=== PATIENT | female | born 1935 | race Caucasian/White ===

== ENCOUNTER 2022-12-22 19:16 | Inpatient (IN) ==
[2022-12-22] MEDS ORDERED: DILTIAZEM 50 MG/10 ML VIAL IV STA (20:15)
[2022-12-22] MEDS ORDERED: ONDANSETRON 4 MG/2 ML VIAL IV STA (20:15)
[2022-12-22 20:32] LABS: INR 1.8; PT Patient Result 18.9 SECS (10.1-12.1)
[2022-12-22] MEDS ORDERED: METOCLOPRAMIDE 10 MG/2 ML VIAL IV STA (21:20)
[2022-12-22 22:15] LABS: Basophils # 0.1 10*3/uL (0.0-0.2); Basophils % 1.2 % (0.0-0.8); Eosinophils # 0.3 10*3/uL (0.0-0.87); Eosinophils % 2.7 % (0.00-10.9); Hematocrit 47.7 VOL% (35.7-47.0); Hemoglobin 15.6 GM/DL (12.0-16.0); Immature Granulocytes % 0.5 %; Immature Granulocytes Absolute 0.05 #; Lymphocytes # 2.3 10*3/uL (1.4-4.0); Lymphocytes % 21.4 % (21.3-54.2); Mean Corpuscular HGB Conc 32.7 GM/DL (32-36); Mean Corpuscular Volume 97.1 FL (87-102); Monocytes # 1.2 10*3/uL (0.11-0.8); Monocytes % 11.1 % (1.7-12.7); Neutrophils % 63.1 % (38.7-73.9); Platelet Count 178 T/CUMM (130-400); Red Blood Count 4.91 MC/CUMM (3.8-5.5); Red Cell Distribution Width 14.6 % (9.3-17.3); White Blood Count 10.65 T/CUMM (4-12)
[2022-12-22 22:22] LABS: Hyaline Casts,Urine 30 /LPF (0-3); Mucus,Urine Occasional /LPF (Occasional); RBC,Urine 6 /HPF (0-4); Squamous Epithelial Cell,Urine Occasional /HPF (0-10)
[2022-12-22 22:23] LABS: Urine Appearance Clear (Clear); Urine Color Yellow (Yellow)
[2022-12-22 22:24] LABS: Bilirubin,Urine Negative (Negative); Blood, Urine Negative (Negative); Glucose,Urine (UA) Negative (Negative); Ketones,Urine Negative (Negative); Nitrite,Urine Negative (Negative); Protein,Urine Negative (Negative); Urine Specific Gravity 1.015 (1.001-1.035); Urine Urobilinogen 0.2 eU/dL (<2.0)
[2022-12-22 22:29] LABS: Albumin 3.4 G/DL (3.4-5.0); Bilirubin,Total 0.9 MG/DL (0.20-1.00); Calcium 9.2 MG/DL (8.5-10.1); Potassium 5.5 MMOL/L (3.5-5.1); Thyroid Stimulating Hormone 1.45 uIU/ml (0.358-3.74); Total Protein 6.1 G/DL (6.4-8.2)
[2022-12-22] MEDS ORDERED: SODIUM CHLORIDE 0.9% 500 ML IV STA (22:51)
[2022-12-22] MEDS ORDERED: FUROSEMIDE 40 MG/4 ML VIAL IV STA (23:36)
[2022-12-22] MEDS ORDERED: hydrALAZINE 20 MG/1 ML VIAL IV PRN (23:46)
[2022-12-22] MEDS ORDERED: ZALEPLON 5 MG CAPSULE PO PRN (23:46)
[2022-12-22] MEDS ORDERED: diphenhydrAMINE CAP 25 MG CAPSULE PO PRN (23:46)
[2022-12-22] MEDS ORDERED: guaiFENesin/DM ER 600-30 MG TABLET PO PRN (23:46)
[2022-12-22] MEDS ORDERED: ALBUTEROL/IPRATROPIUM 3 ML NEB RESP TX PRN (23:46)
[2022-12-22] MEDS ORDERED: ACETAMINOPHEN 325 MG TABLET PO PRN (23:46)
[2022-12-22] MEDS ORDERED: NICOTINE 21 MG/24 HR PATCH TRANSDERM PRN (23:46)
[2022-12-22] MEDS ORDERED: ONDANSETRON 4 MG/2 ML VIAL IV PRN (23:46)
[2022-12-23 04:40] LABS: Basophils # 0.1 10*3/uL (0.0-0.2); Basophils % 0.9 % (0.0-0.8); Eosinophils # 0.3 10*3/uL (0.0-0.87); Eosinophils % 2.3 % (0.00-10.9); Hematocrit 44.7 VOL% (35.7-47.0); Hemoglobin 14.4 GM/DL (12.0-16.0); Immature Granulocytes % 0.4 %; Immature Granulocytes Absolute 0.04 #; Lymphocytes % 18.7 % (21.3-54.2); Mean Corpuscular HGB Conc 32.2 GM/DL (32-36); Mean Corpuscular Volume 97.6 FL (87-102); Monocytes # 1.3 10*3/uL (0.11-0.8); Monocytes % 12.2 % (1.7-12.7); Neutrophils % 65.5 % (38.7-73.9); Platelet Count 135 T/CUMM (130-400); Red Blood Count 4.58 MC/CUMM (3.8-5.5); Red Cell Distribution Width 14.5 % (9.3-17.3); White Blood Count 10.67 T/CUMM (4-12)
[2022-12-23 05:03] LABS: Calcium 9.4 MG/DL (8.5-10.1); Potassium 4.8 MMOL/L (3.5-5.1)
[2022-12-23] MEDS: LEVOTHYROXINE 125 MCG TABLET PO SCH (05:50)
[2022-12-23] MEDS ORDERED: AZITHROMYCIN INJ 500 MG in SODIUM CHLORIDE 0.9% 250 ML IV ONE (08:17)
[2022-12-23] MEDS: MONTELUKAST 10 MG TABLET PO SCH (09:08)
[2022-12-23] MEDS: SERTRALINE 50 MG TABLET PO SCH (09:08)
[2022-12-23] MEDS: PANTOPRAZOLE 40 MG TABLET PO SCH (09:08)
[2022-12-23] MEDS: RIVAROXABAN 15 MG TABLET PO SCH (09:08)
[2022-12-23] MEDS: MULTIVITAMIN (CENTRUM) TABLET PO SCH (09:09)
[2022-12-23] MEDS: SPIRONOLACTONE 25 MG TABLET PO SCH ×2 (09:18→20:20)
[2022-12-23] MEDS: DILTIAZEM INJ 100 MG in SODIUM CHLORIDE 0.9% 100 ML IV SCH (09:52)
[2022-12-23] MEDS: FUROSEMIDE 40 MG/4 ML VIAL IV SCH ×2 (09:59→18:20)
[2022-12-23] MEDS: guaiFENesin/DM ER 600-30 MG TABLET PO SCH ×2 (15:02→20:20)
[2022-12-23] MEDS: METOPROLOL SUCCINATE XL 50 MG TABLET PO SCH (15:08)
[2022-12-23] MEDS: hydrALAZINE 10 MG TABLET PO SCH ×2 (15:08→20:20)
[2022-12-24 04:50] LABS: Basophils # 0.1 10*3/uL (0.0-0.2); Basophils % 1.1 % (0.0-0.8); Eosinophils # 0.5 10*3/uL (0.0-0.87); Eosinophils % 4.5 % (0.00-10.9); Hematocrit 47.1 VOL% (35.7-47.0); Hemoglobin 15.6 GM/DL (12.0-16.0); Immature Granulocytes % 0.5 %; Immature Granulocytes Absolute 0.05 #; Lymphocytes # 2.2 10*3/uL (1.4-4.0); Lymphocytes % 21.6 % (21.3-54.2); Mean Corpuscular HGB Conc 33.1 GM/DL (32-36); Mean Corpuscular Volume 97.5 FL (87-102); Mean Platelet Volume 11.5 FL (9.6-12.0); Monocytes # 1.5 10*3/uL (0.11-0.8); Monocytes % 14.3 % (1.7-12.7); Platelet Count 156 T/CUMM (130-400); Red Blood Count 4.83 MC/CUMM (3.8-5.5); Red Cell Distribution Width 14.6 % (9.3-17.3); White Blood Count 10.31 T/CUMM (4-12)
[2022-12-24 05:10] LABS: Albumin 3.3 G/DL (3.4-5.0); Calcium 9.4 MG/DL (8.5-10.1); Osmolality,Calculated 280.2 MOS/KG (273-304); Potassium 4.7 MMOL/L (3.5-5.1); Total Protein 6.2 G/DL (6.4-8.2)
[2022-12-24] MEDS: METOPROLOL SUCCINATE XL 50 MG TABLET PO SCH (08:49)
[2022-12-24] MEDS: guaiFENesin/DM ER 600-30 MG TABLET PO SCH ×2 (08:49→21:32)
[2022-12-24] MEDS: MULTIVITAMIN (CENTRUM) TABLET PO SCH (08:50)
[2022-12-24] MEDS: SPIRONOLACTONE 25 MG TABLET PO SCH ×2 (08:50→21:32)
[2022-12-24] MEDS: hydrALAZINE 10 MG TABLET PO SCH ×2 (08:50→21:32)
[2022-12-24] MEDS: MONTELUKAST 10 MG TABLET PO SCH (08:50)
[2022-12-24] MEDS: PANTOPRAZOLE 40 MG TABLET PO SCH (08:50)
[2022-12-24] MEDS: SIMVASTATIN 20 MG TABLET PO SCH (08:50)
[2022-12-24] MEDS: SERTRALINE 50 MG TABLET PO SCH (08:50)
[2022-12-24] MEDS: RIVAROXABAN 15 MG TABLET PO SCH (08:51)
[2022-12-24] MEDS: AZITHROMYCIN INJ 250 MG in SODIUM CHLORIDE 0.9% 250 ML IV SCH (08:53)
[2022-12-24] MEDS: FUROSEMIDE 40 MG/4 ML VIAL IV SCH ×2 (10:19→18:37)
[2022-12-24] MEDS: DILTIAZEM INJ 100 MG in SODIUM CHLORIDE 0.9% 100 ML IV SCH ×2 (12:52→21:31)
[2022-12-25 04:27] LABS: Basophils # 0.1 10*3/uL (0.0-0.2); Eosinophils # 0.5 10*3/uL (0.0-0.87); Eosinophils % 5.2 % (0.00-10.9); Hematocrit 45.7 VOL% (35.7-47.0); Hemoglobin 14.5 GM/DL (12.0-16.0); Immature Granulocytes % 0.5 %; Immature Granulocytes Absolute 0.05 #; Lymphocytes % 20.1 % (21.3-54.2); Mean Corpuscular HGB Conc 31.7 GM/DL (32-36); Mean Corpuscular Volume 98.5 FL (87-102); Mean Platelet Volume 11.6 FL (9.6-12.0); Monocytes # 1.4 10*3/uL (0.11-0.8); Monocytes % 14.4 % (1.7-12.7); Neutrophils % 58.8 % (38.7-73.9); Platelet Count 141 T/CUMM (130-400); Red Blood Count 4.64 MC/CUMM (3.8-5.5); Red Cell Distribution Width 14.5 % (9.3-17.3); White Blood Count 9.75 T/CUMM (4-12)
[2022-12-25 04:48] LABS: Bilirubin,Total 0.8 MG/DL (0.20-1.00); Calcium 8.9 MG/DL (8.5-10.1); Potassium 4.4 MMOL/L (3.5-5.1)
[2022-12-25] MEDS: LEVOTHYROXINE 125 MCG TABLET PO SCH (05:45)
[2022-12-25] MEDS ORDERED: SPIRONOLACTONE 25 MG TABLET PO SCH (09:00)
[2022-12-25] MEDS ORDERED: hydrALAZINE 10 MG TABLET PO SCH (09:00)
[2022-12-25] MEDS: RIVAROXABAN 15 MG TABLET PO SCH (10:12)
[2022-12-25] MEDS: guaiFENesin/DM ER 600-30 MG TABLET PO SCH (10:12)
[2022-12-25] MEDS: MULTIVITAMIN (CENTRUM) TABLET PO SCH (10:12)
[2022-12-25] MEDS: METOPROLOL SUCCINATE XL 50 MG TABLET PO SCH (10:13)
[2022-12-25] MEDS: SERTRALINE 50 MG TABLET PO SCH (10:13)
[2022-12-25] MEDS: SIMVASTATIN 20 MG TABLET PO SCH (10:13)
[2022-12-25] MEDS: MONTELUKAST 10 MG TABLET PO SCH (10:13)
[2022-12-25] MEDS: AZITHROMYCIN INJ 250 MG in SODIUM CHLORIDE 0.9% 250 ML IV SCH (10:14)
[2022-12-25] MEDS: FUROSEMIDE 40 MG/4 ML VIAL IV SCH (10:14)
[2022-12-25 11:40] VITALS: BP 110/66
== END 2022-12-25 11:59 | disposition home health service (06) | DRG 291 ==
LOC: N.ED 19:16 → N.TELES 23:46
PROVIDERS: ADMIT Family Medicine; ATTEND Family Medicine